=== PATIENT | female | born 1925 | race Caucasian/White ===

== ENCOUNTER 2017-05-01 16:51 | Observation (INO) | payer MEDICARE ==
[~2017-05-01 16:51] MED LIST: AMOXICILLIN500 M1 PO; ANALGESIC BALM30 G2 TOP; ASPIRIN81 M1 PO; BIAXIN250 M3 PO; CIPRO XR500 MG PO; COUMADIN5 MG PO; ISOSORBIDE MONO60 M3 PO; K-DUR20 MEQ; LIPITOR10 M1 PO; LISINOPRIL-HCT1 EAC1 PO; LISINOPRIL-HCT1 EACH PO; LISINOPRIL-HCTZ; LOPRESSOR100 MG; LOVENOX80 MG/0.8 SQ; METOPROLOL SUCC50 MG PO; MILK OF MAGNESIA PO; NITROSTAT0.4 MG/TAB SL; NORCO 5-325 TA1 EACH PO; NORVASC5 M2 PO; OMEPRAZOLE20 M4 PO; PERCOCET 5MG/AP1 TA1 PO; PHENERGAN25 MG/SUPP; PLAVIX75 M1 PO; PROTONIX40 M2 PO; TOPROL XL100 M1 PO; TOPROL XL50 MG; TYLENOL325 M2 PO; ZOFRAN4 MG PO
[2017-05-01] MEDS ORDERED: PROTONIX40 M2 PO (17:19)
[2017-05-01] MEDS ORDERED: POLYETHYLENE G255 G1 PO (17:19)
[2017-05-01] MEDS ORDERED: PREPARATION H O28 GM PR (17:20)
[2017-05-01] MEDS ORDERED: SENOKOT-S TABL1 EACH PO (17:20)
[2017-05-01] MEDS ORDERED: ULTRAM50 M1 PO (17:21)
[2017-05-01] MEDS ORDERED: HYDROCORTISON28.411 TP (17:21)
[2017-05-01 22:51] LABS: BASO % 0.1 % (0-2); EOS % 0.2 % (0-7); HCT-HEMATOCRIT 38.8 % (34.0-49.0); HGB-HEMOGLOBIN 13.2 gm/dl (12.0-15.5); IMMATURE GRANULOCYTES ABSOLUTE 0.06 tho/cmm (0-0.03); IMMATURE GRANULOCYTES PERCENT 0.5 % (0-0.3); LYMPH % 10.7 % (20-45); LYMPH ABSOLUTE COUNT 1.3 tho/cmm (0.8-4.5); MCH (MEAN CORPUSCULAR HGB) 31.4 pg (28.0-32.0); MCV (MEAN CELL VOLUME) 92.2 fl (82.0-96.0); MEAN PLATELET VOLUME 9.8 cmc (9.4-12.4); MONO % 5.8 % (0-12); MONOCYTE ABSOLUTE COUNT 0.7 tho/cmm (0.0-1.2); NEUTROPHIL ABSOLUTE COUNT 10.1 tho/cmm (1.6-8.0); NEUTROPHIL-AUTOMATED 10.1 tho/cmm (1.6-8.0); NEUTROPHILS % 82.7 % (40-80); PLATELET COUNT 256 tho/cmm (150-450); RED BLOOD COUNT 4.21 mil/cmm (4.00-5.20); RED CELL DISTRIBUTION WIDTH 14.5 % (12.4-16.4); WHITE BLOOD COUNT 12.2 tho/cmm (4.0-10.0)
[2017-05-01 23:08] LABS: ANION GAP 14 mmol/L (0-20); BLOOD UREA NITROGEN 27 mg/dl (6-24); CALCIUM 9.2 mg/dl (8.5-10.5); CARBON DIOXIDE-VENOUS 25 mmol/L (22-32); CHLORIDE 108 mmol/l (96-110); CREATININE 0.84 mg/dl (0.50-1.10); GLUCOSE 136 mg/dL (70-110); SODIUM 143 mmol/L (135-145); eGFR VALUE FOR BLACK 71 mL/Min
[2017-05-01 23:11] LABS: TSH-THYROID STIMULATING HORM. 0.79 uIU/ml (0.40-3.80)
[2017-05-02 02:27] LABS: URINE BILIRUBIN NEGATIVE (NEG); URINE BLOOD NEGATIVE (NEG); URINE GLUCOSE (UA) MODERATE (NEG); URINE KETONE NEGATIVE (NEG); URINE LEUKOCYTE ESTERASE NEGATIVE (NEG); URINE NITRITE NEGATIVE (NEG); URINE PROTEIN NEGATIVE (NEG); URINE SPECIFIC GRAVITY 1.015 (1.003-1.030)
[2017-05-02 02:38] LABS: URINE APPEARANCE CLEAR; URINE COLOR YELLOW
[2017-05-02 02:53] LABS: URINE BACTERIA 2+; URINE RBC 0 /[HPF] (0-5); URINE WBC 0-1 /[HPF] (0-5)
[2017-05-03 04:54] LABS: HCT-HEMATOCRIT 40.4 % (34.0-49.0); HGB-HEMOGLOBIN 13.9 gm/dl (12.0-15.5); MCH (MEAN CORPUSCULAR HGB) 31.7 pg (28.0-32.0); MCHC MEAN CORPUSCULAR HGB CONC 34.4 % (32.0-36.0); MEAN PLATELET VOLUME 10.7 cmc (9.4-12.4); NEUTROPHIL-AUTOMATED 6.3 tho/cmm (1.6-8.0); PLATELET COUNT 288 tho/cmm (150-450); RED BLOOD COUNT 4.39 mil/cmm (4.00-5.20); RED CELL DISTRIBUTION WIDTH 14.5 % (12.4-16.4); WHITE BLOOD COUNT 9.5 tho/cmm (4.0-10.0)
[2017-05-03 05:05] LABS: ANION GAP 11 mmol/L (0-20); BLOOD UREA NITROGEN 19 mg/dl (6-24); CALCIUM 9.3 mg/dl (8.5-10.5); CARBON DIOXIDE-VENOUS 28 mmol/L (22-32); CHLORIDE 103 mmol/l (96-110); CREATININE 0.78 mg/dl (0.50-1.10); GLUCOSE 120 mg/dL (70-110); SODIUM 138 mmol/L (135-145); eGFR VALUE FOR BLACK 78 mL/Min
[2017-05-03 05:34] LABS: POTASSIUM 4.2 mmol/L (3.7-5.1)
[2017-05-03 07:54] LABS: BAND % 9 % (0-20); BAND ABSOLUTE COUNT 0.9 tho/cmm (0-2.0); EOSINOPHIL % 3 % (0-7)
[2017-05-23] MEDS ORDERED: CIPRO250 M2 PO (11:22)
== END 2017-05-03 12:13 ==
LOC: EDMED 16:51 → EMR2 21:02 → CAR1 22:47
PROVIDERS: Internal Medicine; Nurse Practitioner; ADMIT Hospitalist
DX: M25.511 Pain in right shoulder (principal); I25.10 Atherosclerotic heart disease of native coronary artery without angina pectoris; I10 Essential (primary) hypertension; E78.5 Hyperlipidemia, unspecified; M19.90 Unspecified osteoarthritis, unspecified site; Z66 Do not resuscitate; R53.1 Weakness; K64.9 Unspecified hemorrhoids; K59.00 Constipation, unspecified; Z79.02 Long term (current) use of antithrombotics/antiplatelets; Z79.82 Long term (current) use of aspirin; Z79.899 Other long term (current) drug therapy; Z86.711 Personal history of pulmonary embolism; Z86.718 Personal history of other venous thrombosis and embolism; Z90.49 Acquired absence of other specified parts of digestive tract; Z90.710 Acquired absence of both cervix and uterus; Z98.890 Other specified postprocedural states; W01.198A Fall on same level from slipping, tripping and stumbling with subsequent striking against other object, initial encounter; Y93.89 Activity, other specified; Y92.59 Other trade areas as the place of occurrence of the external cause; Y99.8 Other external cause status
CPT/HCPCS: G0378; G8978-GP-CJ; G8978-GP-CK; G8979-GP-CJ; G8980-GP-CK; G8987-GO-CK; G8988-GO-CJ; G8989-GO-CK

== ENCOUNTER 2017-05-07 22:14 | Emergency (ER) | payer MEDICARE ==
[~2017-05-07 22:14] MED LIST changes: +HYDROCORTISON28.411 TP; +POLYETHYLENE G255 G1 PO; +PREPARATION H O28 GM PR; +SENOKOT-S TABL1 EACH PO; +ULTRAM50 M1 PO
[2017-05-07] MEDS ORDERED: ISOSORBIDE MONO30 M4 PO (23:19)
[2017-05-08 00:35] LABS: BASO % 0.1 % (0-2); EOSINOPHIL ABSOLUTE COUNT 0.1 tho/cmm (0.0-0.7); HGB-HEMOGLOBIN 13.5 gm/dl (12.0-15.5); IMMATURE GRANULOCYTES ABSOLUTE 0.11 tho/cmm (0-0.03); IMMATURE GRANULOCYTES PERCENT 0.8 % (0-0.3); LYMPH % 16.7 % (20-45); LYMPH ABSOLUTE COUNT 2.3 tho/cmm (0.8-4.5); MCH (MEAN CORPUSCULAR HGB) 31.3 pg (28.0-32.0); MCHC MEAN CORPUSCULAR HGB CONC 33.8 % (32.0-36.0); MCV (MEAN CELL VOLUME) 92.8 fl (82.0-96.0); MEAN PLATELET VOLUME 10.1 cmc (9.4-12.4); MONO % 5.7 % (0-12); MONOCYTE ABSOLUTE COUNT 0.8 tho/cmm (0.0-1.2); NEUTROPHIL ABSOLUTE COUNT 10.2 tho/cmm (1.6-8.0); NEUTROPHIL-AUTOMATED 10.2 tho/cmm (1.6-8.0); NEUTROPHILS % 75.7 % (40-80); PLATELET COUNT 298 tho/cmm (150-450); RED BLOOD COUNT 4.31 mil/cmm (4.00-5.20); RED CELL DISTRIBUTION WIDTH 14.7 % (12.4-16.4); WHITE BLOOD COUNT 13.5 tho/cmm (4.0-10.0)
[2017-05-23] MEDS ORDERED: CIPRO250 M2 PO (11:22)
== END 2017-05-08 01:10 ==
LOC: EDMED 22:14
PROVIDERS: Emergency Medicine
DX: K64.8 Other hemorrhoids (principal); Z95.5 Presence of coronary angioplasty implant and graft; Z79.01 Long term (current) use of anticoagulants